=== PATIENT | female | born 1975 | race Asian ===

== ENCOUNTER 2024-02-17 06:13 | Day surgery (SDC) | payer OTHER ==
[~2024-02-17] VITALS: Ht 152.4 cm; Wt 47.6 kg
[2024-02-17 06:36] LABS: BASOPHILS # (AUTO) 0.1 K/uL (0.00-0.22); BASOPHILS % (AUTO) 1.2 % (0.0-2.0); EOSINOPHILS # (AUTO) 0.1 K/uL (0-0.4); EOSINOPHILS % (AUTO) 1.3 % (0.0-4.0); HEMATOCRIT 33.7 % (36-48); HEMOGLOBIN 11.6 g/dL (12.0-16.0); LYMPHOCYTES # (AUTO) 1.2 K/uL (2.5-16.5); MEAN CORPUSCULAR HEMOGLOBIN 29 pg (27-31); MEAN CORPUSCULAR HGB CONC 35 g/dL (33-37); MEAN CORPUSCULAR VOLUME 82.8 fL (80-94); MONOCYTES # (AUTO) 0.5 K/uL (0.8-1.0); MONOCYTES % (AUTO) 10.5 % (1.7-9.3); NEUTROPHILS # (AUTO) 2.9 K/uL (1.8-7.7); PLATELET COUNT (AUTO) 524 K/uL (140-450); RED BLOOD CELL COUNT(AUTO) 4.07 MIL/uL (4.20-5.40); RED CELL DISTRIBUTION WIDTH 12.8 % (11.6-13.7); WHITE BLOOD COUNT (AUTO) 4.8 K/uL (4.8-10.8)
[2024-02-17 06:56] LABS: ALBUMIN 3.6 g/dL (3.4-5.0); ANION GAP 11.1 (8-16); CARBON DIOXIDE 31.5 mmol/L (21-32); CREATININE 0.6 mg/dL (0.6-1.3); POTASSIUM 3.6 mmol/L (3.5-5.1); TOTAL BILIRUBIN 0.3 mg/dL (0.0-1.0); TOTAL PROTEIN, SERUM 7.8 g/dL (6.4-8.2)
[2024-02-17] MEDS ORDERED: SEVOFLURANE 250 ML BTL INH ONE (07:15)
[2024-02-17] MEDS ORDERED: fentaNYL citrate 0.05 MG/ML VIAL ONE (07:33)
[2024-02-17] MEDS ORDERED: MIDAZOLAM 2 MG/2 ML VIAL ONE (07:33)
[2024-02-17] MEDS ORDERED: ROCURONIUM 50 MG/5 ML VIAL IV ONE (08:05)
[2024-02-17] MEDS ORDERED: LIDOCAINE MPF 2% 100 MG/5 ML VIAL INJ ONE (08:05)
[2024-02-17] MEDS ORDERED: ONDANSETRON 4 MG/2 ML VIAL ONE (08:05)
[2024-02-17] MEDS ORDERED: METOCLOPRAMIDE 10 MG/2 ML INJ VIAL ONE (08:05)
[2024-02-17] MEDS ORDERED: PROPOFOL 200 MG/20 ML VIAL IV ONE (08:05)
[2024-02-17] MEDS ORDERED: KETOROLAC 60 MG/2 ML VIAL IM ONE (08:06)
[2024-02-17] MEDS: ceFAZolin 2,000 MG VIAL ONE (08:14)
[2024-02-17] MEDS: LIDOCAINE/EPI 1% 1:100000 20 ML VIAL INJ ONE (08:14)
[2024-02-17] MEDS: BUPIVACAINE-MPF 0.25% 30 ML VIAL INJ ONE (08:14)
[2024-02-17] MEDS ORDERED: ACETAMINOPHEN 100 ML IV ONE (08:19)
[2024-02-17] MEDS ORDERED: NEOSTIGMINE 1:1000 10 MG/10 ML VIAL ONE (09:13)
[2024-02-17] MEDS ORDERED: GLYCOPYRROLATE 0.2 MG/ML VIAL ONE (09:13)
[2024-02-17] MEDS ORDERED: HYDROcodone/APAP 5/325 MG 1 TAB TAB PO PRN (09:45)
[2024-02-17] MEDS ORDERED: KETOROLAC 30 MG/ML VIAL IVP SCH (09:45)
[2024-02-17] MEDS ORDERED: LACTATED RINGERS 1,000 ML IV SCH (09:50)
[2024-02-17] MEDS ORDERED: diphenhydrAMINE 50 MG/ML VIAL IVP PRN (09:50)
[2024-02-17] MEDS ORDERED: HYDROmorphone 1 MG/ML AMP IVP PRN (09:50)
[2024-02-17] MEDS ORDERED: MEPERIDINE 25 MG/ML SYR IVP PRN (09:50)
[2024-02-17] MEDS ORDERED: ONDANSETRON 4 MG/2 ML VIAL IVP PRN (09:50)
[2024-02-17] MEDS: HYDROcodone/APAP 5/325 MG 1 TAB TAB PO PRN (11:16)
== END 2024-02-17 12:25 | disposition home or self-care (01) ==
LOC: MDS 06:13 → MMU 06:14 → MDS 12:25
PROVIDERS: ATTEND Obstetrics & Gynecology
DX: N83.202 Unspecified ovarian cyst, left side (principal); N83.201 Unspecified ovarian cyst, right side; I10 Essential (primary) hypertension; N94.10 Unspecified dyspareunia; N92.6 Irregular menstruation, unspecified; G89.18 Other acute postprocedural pain; R93.89 Abnormal findings on diagnostic imaging of other specified body structures; Z79.899 Other long term (current) drug therapy
CPT/HCPCS: 36415; 80053; 85025; 86886; 86900; 86901; 88305; 93005; J1885; J2001; J2250; J2405; J2704; J2710; J2765; J3010; J3490; J7030

== ENCOUNTER 2024-04-10 12:22 | Emergency (ER) | payer OTHER ==
[~2024-04-10] VITALS: Ht 152.4 cm; Wt 46.0 kg
[2024-04-10 12:25] VITALS: BP 120/94; PULSE 99; RESP 18; TEMP 98; O2SAT 100
[2024-04-10] MEDS ORDERED: ZOLP5TAB1 PO (13:40)
== END 2024-04-10 13:48 | disposition home or self-care (01) ==
LOC: MED 12:22
DX: G47.00 Insomnia, unspecified (principal); I10 Essential (primary) hypertension; K21.9 Gastro-esophageal reflux disease without esophagitis; Z79.899 Other long term (current) drug therapy; Z88.8 Allergy status to other drugs, medicaments and biological substances
CPT/HCPCS: 99283

== ENCOUNTER 2024-06-09 17:04 | Outpatient (CLI) | payer OTHER ==
[~2024-06-09 17:04] MED LIST: ZOLP5TAB1 PO
[2024-06-10 07:54] LABS: BASOPHILS # (AUTO) 0.1 K/uL (0.00-0.22); BASOPHILS % (AUTO) 1.2 % (0.0-2.0); EOSINOPHILS % (AUTO) 0.8 % (0.0-4.0); HEMATOCRIT 32.3 % (36-48); HEMOGLOBIN 10.6 g/dL (12.0-16.0); LYMPHOCYTES # (AUTO) 0.8 K/uL (2.5-16.5); MEAN CORPUSCULAR HEMOGLOBIN 27 pg (27-31); MEAN CORPUSCULAR HGB CONC 33 g/dL (33-37); MEAN CORPUSCULAR VOLUME 82.1 fL (80-94); MONOCYTES # (AUTO) 0.4 K/uL (0.8-1.0); MONOCYTES % (AUTO) 9.1 % (1.7-9.3); NEUTROPHILS # (AUTO) 3.1 K/uL (1.8-7.7); NEUTROPHILS % (AUTO) 69.9 % (42.2-75.2); PLATELET COUNT (AUTO) 414 K/uL (140-450); RED BLOOD CELL COUNT(AUTO) 3.94 MIL/uL (4.20-5.40); RED CELL DISTRIBUTION WIDTH 13.9 % (11.6-13.7); WHITE BLOOD COUNT (AUTO) 4.4 K/uL (4.8-10.8)
[2024-06-10 08:27] LABS: ALBUMIN 3.1 g/dL (3.4-5.0); ANION GAP 7.7 (8-16); CALCIUM 8.3 mg/dL (8.5-10.1); CHOL/HDL RATIO 2.5 (1-4.5); CREATININE 0.6 mg/dL (0.6-1.3); POTASSIUM 3.7 mmol/L (3.5-5.1); THYROID STIMULATING HORMONE 0.82 uIU/mL (0.34-3.74); TOTAL BILIRUBIN 0.3 mg/dL (0.0-1.0); TOTAL PROTEIN, SERUM 6.9 g/dL (6.4-8.2)
[2024-06-10 08:29] LABS: APPEARANCE,URINE CLEAR (CLEAR); BILIRUBIN,URINE NEGATIVE (NEGATIVE); BLOOD, URINE NEGATIVE (NEGATIVE); COLOR,URINE YELLOW (YELLOW); LEUKOCYTE ESTERASE ,URINE NEGATIVE (NEGATIVE); NITRITE, URINE NEGATIVE (NEGATIVE); PROTEIN,URINE NEGATIVE (NEGATIVE); UGLUCOSE NEGATIVE (NEGATIVE); UROBILINOGEN,URINE 0.2 EU/dL (0.2 - 1)
[2024-06-10] MEDS ORDERED: ONDA-188 PO (22:53)
[2024-06-12 15:06] LABS: HIV 1/0/2 ABS, QUAL Non Reactive (Non Reactive)
[2024-06-13 06:08] LABS: HEPATITIS A ANTIBODY IGM Negative (Negative); HEPATITIS B CORE, IGM Negative (Negative); HEPATITIS B SURFACE ANTIGEN Negative (Negative); VITAMIN D, 25-HYDROXY 44.6 ng/mL (30.0-100.0)
== END 2024-06-09 22:29 | disposition home or self-care (01) ==
LOC: MLB 17:04
PROVIDERS: ATTEND Physician Assistant Medical
DX: Z00.00 Encounter for general adult medical examination without abnormal findings (principal); Z11.59 Encounter for screening for other viral diseases; Z13.6 Encounter for screening for cardiovascular disorders; K76.0 Fatty (change of) liver, not elsewhere classified; K21.9 Gastro-esophageal reflux disease without esophagitis; Z11.3 Encounter for screening for infections with a predominantly sexual mode of transmission
CPT/HCPCS: 36415; 80053; 80074; 81003; 82306; 84436; 84443; 85025; 86592; 86694; 86702; 87491

== ENCOUNTER 2024-06-10 22:01 | Emergency (ER) | payer OTHER ==
[~2024-06-10] VITALS: Ht 152.4 cm; Wt 44.9 kg
[2024-06-10 22:01] VITALS: BP 170/83; PULSE 96; RESP 16; TEMP 98.3; O2SAT 100
[2024-06-10] MEDS ORDERED: ONDA-188 PO (22:53)
== END 2024-06-10 22:55 | disposition home or self-care (01) ==
LOC: MED 22:01
DX: K76.0 Fatty (change of) liver, not elsewhere classified (principal); K21.9 Gastro-esophageal reflux disease without esophagitis; I10 Essential (primary) hypertension; Z98.890 Other specified postprocedural states; Z79.899 Other long term (current) drug therapy; Z88.1 Allergy status to other antibiotic agents
CPT/HCPCS: 99283

== ENCOUNTER 2024-06-20 08:39 | Outpatient (CLI) | payer OTHER ==
[~2024-06-20 08:39] MED LIST changes: +ONDA-188 PO
== END 2024-06-20 20:48 | disposition home or self-care (01) ==
LOC: MCA 08:39
PROVIDERS: ATTEND Physician Assistant Medical
DX: R94.31 Abnormal electrocardiogram [ECG] [EKG] (principal)